=== PATIENT | female | born 1985 | race Two or more races ===

== ENCOUNTER 2017-10-31 12:10 | Observation (INO) | payer MEDICAID ==
[~2017-10-31] VITALS: Ht 160 cm; Wt 65.8 kg
[2017-10-31] MEDS ORDERED: TERBUTALINE SULFATE 1 MG/ML 1ML VIAL SC SCH (14:00)
[2017-10-31] MEDS ORDERED: TERBUTALINE SULFATE 1 MG/ML 1ML VIAL SC ONE (14:01)
[2017-10-31] MEDS ORDERED: BETAMETHASONE ACET (6MG/ML) 5ML VIAL ONE (14:22)
[2017-10-31] MEDS ORDERED: BETAMETHASONE ACET (6MG/ML) 5ML VIAL IM SCH (22:00)
[2017-11-01] MEDS ORDERED: PREN-96 PO (16:01)
== END 2017-10-31 14:55 | disposition home or self-care (01) | DRG 566 ==
LOC: LDRP 12:10
PROVIDERS: ADMIT Obstetrics & Gynecology; ATTEND Obstetrics & Gynecology
DX: O62.9 Abnormality of forces of labor, unspecified (principal); O26.893 Other specified pregnancy related conditions, third trimester; H53.8 Other visual disturbances; O46.93 Antepartum hemorrhage, unspecified, third trimester; Z3A.34 34 weeks gestation of pregnancy
CPT/HCPCS: 59025; 76818; 81002; 96372; G0378; J0702; J3105

== ENCOUNTER 2017-11-01 13:50 | Observation (INO) | payer MEDICAID ==
[2017-11-01] MEDS ORDERED: BETAMETHASONE ACET (6MG/ML) 5ML VIAL ONE (14:46)
[2017-11-01] MEDS ORDERED: PREN-96 PO (16:01)
[2017-11-01] MEDS ORDERED: BETAMETHASONE ACET (6MG/ML) 5ML VIAL IM SCH (22:00)
== END 2017-11-01 14:55 | disposition home or self-care (01) | DRG 566 ==
LOC: LDRP 13:50
PROVIDERS: ADMIT Obstetrics & Gynecology; ATTEND Obstetrics & Gynecology
DX: O62.9 Abnormality of forces of labor, unspecified (principal); O26.893 Other specified pregnancy related conditions, third trimester; Z3A.34 34 weeks gestation of pregnancy
CPT/HCPCS: 59025; 81002; G0378; J0702

== ENCOUNTER 2017-12-09 07:50 | Observation (INO) | payer MEDICAID ==
[~2017-12-09 07:50] MED LIST: PREN-96 PO
[2017-12-09] MEDS ORDERED: ASPI81TA27 PO (09:14)
== END 2017-12-09 09:05 | disposition home or self-care (01) | DRG 566 ==
LOC: LDRP 07:50
PROVIDERS: ADMIT Obstetrics & Gynecology; ATTEND Obstetrics & Gynecology
DX: O42.92 Full-term premature rupture of membranes, unspecified as to length of time between rupture and onset of labor (principal); O26.893 Other specified pregnancy related conditions, third trimester; N89.8 Other specified noninflammatory disorders of vagina; O62.9 Abnormality of forces of labor, unspecified; Z3A.39 39 weeks gestation of pregnancy
CPT/HCPCS: 76818; G0378; 59025; 81002

== ENCOUNTER 2017-12-11 04:13 | Observation (INO) | payer MEDICAID ==
[~2017-12-11] VITALS: Ht 157.5 cm; Wt 89.8 kg
[~2017-12-11 04:13] MED LIST changes: +ASPI81TA27 PO
== END 2017-12-11 05:50 | disposition home or self-care (01) | DRG 566 ==
LOC: LDRP 04:13
PROVIDERS: ADMIT Specialist; ATTEND Specialist
DX: O26.893 Other specified pregnancy related conditions, third trimester (principal); O48.0 Post-term pregnancy; O62.9 Abnormality of forces of labor, unspecified; R10.9 Unspecified abdominal pain; M54.9 Dorsalgia, unspecified; Z3A.40 40 weeks gestation of pregnancy
CPT/HCPCS: 59025; 76818; 81002; G0378

== ENCOUNTER 2018-03-11 11:52 | Inpatient (IN) | payer MEDICAID ==
[~2018-03-11] VITALS: Ht 157.5 cm; Wt 78.5 kg
[2018-03-11 13:04] LABS: Basophils # (auto) 0 uL; Eosinophils # (auto) 0.1 uL; Hemoglobin 13.1 g/dL (12.2-16.2)
[2018-03-11 13:07] LABS: Basophils % (auto) 0.3 % (0.0-2.0); Eosinophils % (auto) 1.1 % (0.0-7.0); Hematocrit 37.8 % (36.0-46.0); Lymphocytes # (auto) 1.5 uL; Mean Corpuscular Hemoglobin 29.3 pg (28.0-32.0); Mean Corpuscular Hgb Conc. 34.6 g/dL (32.0-36.0); Mean Corpuscular Volume 84.5 fL (80.0-100.0); Monocytes # (auto) 0.5 uL; Monocytes % (auto) 5.2 % (0.0-12.0); Neutrophils # (auto) 8.3 uL; Neutrophils % (auto) 79.4 % (37.0-80.0); Nucleated Red Blood Cells % 0.1 %; Platelet Count (auto) 467 10^3/uL (140-450); Red Blood Cells 4.47 10^6/uL (4.0-5.20); Red Cell Distribution Width 14.1 % (11.8-14.3); White Blood Cell 10.5 10^3/uL (4.4-10.8)
[2018-03-11] MEDS ORDERED: SODIUM CHLORIDE 0.9% 500 ML IVB ONE (13:22)
[2018-03-11] MEDS ORDERED: PANTOPRAZOLE 40 MG/10 ML VIAL IV STA (13:22)
[2018-03-11] MEDS ORDERED: MORPHINE SULF INJ 2 MG/ML SYRINGE 1ML IV ONE (13:30)
[2018-03-11] MEDS ORDERED: ONDANSETRON HCL 4 MG/2 ML VIAL IV ONE (13:30)
[2018-03-11 13:38] LABS: Alanine Aminotransferase 47 U/L (13-56); Albumin 3.9 g/dL (3.4-5.0); Alkaline Phosphatase 118 U/L (45-117); Anion Gap 11 (5-15); Aspartate Aminotransferase 17 U/L (15-37); Bilirubin, Total 0.5 mg/dL (0.2-1.0); Blood Urea Nitrogen 13 mg/dL (7-18); Calcium 9.4 mg/dL (8.5-10.1); Carbon Dioxide 21 mmol/L (21-32); Chloride 108 mmol/L (98-107); GFR African American 177 mL/min; GFR Non-African American 146 mL/min; Glucose 85 mg/dL (74-106); Magnesium 2.2 mg/dL (1.6-2.6); Potassium 4.2 mmol/L (3.5-5.1); Sodium 140 mmol/L (136-145); Total Protein 8.5 g/dL (6.4-8.2)
[2018-03-11 13:54] LABS: Amylase 52 U/L (25-115); Lipase 159 U/L (73-393)
[2018-03-11] MEDS ORDERED: NITROGLYCERIN 0.4 MG SL TAB SL PRN (16:15)
[2018-03-11] MEDS ORDERED: ACETAMINOPHEN 500 MG TAB PO PRN (16:15)
[2018-03-11] MEDS ORDERED: MORPHINE SULF INJ 2 MG/ML SYRINGE 1ML IV PRN (16:15)
[2018-03-11] MEDS: SODIUM CHLORIDE 0.9% 1,000 ML IV SCH (16:29)
[2018-03-11 18:24] VITALS: BP 108/62
[2018-03-11] MEDS ORDERED: MORPHINE SULFATE 4 MG/ML SYR/VIAL IV PRN (19:15)
[2018-03-11 19:46] LABS: Urine Bacteria FEW /hpf (None Seen); Urine Blood Negative /uL (Negative); Urine Specific Gravity 1.018 (1.001-1.035); Urine WBC 15 /hpf (0 - 5)
[2018-03-11 19:54] LABS: Alcohol, Urine < 3.0 mg/dL (0-5); Amphetamine Screen, Urine NEGATIVE (NEGATIVE); Barbiturate Scree,Urine NEGATIVE (NEGATIVE); Benzodiazephine Screen, Urine NEGATIVE (NEGATIVE); Cannabinoid Screen, Urine NEGATIVE (NEGATIVE); Cocaine Screen, Urine NEGATIVE (NEGATIVE); Opiate Scree,Urine POSITIVE (NEGATIVE); Phencyclidine Screen, Urine NEGATIVE (NEGATIVE)
[2018-03-11 20:00] VITALS: BP 114/69
[2018-03-11 21:34] VITALS: BP 114/69
[2018-03-11] MEDS: MORPHINE SULF INJ 2 MG/ML SYRINGE 1ML IV PRN (22:04)
[2018-03-12] MEDS: SODIUM CHLORIDE 0.9% 1,000 ML IV SCH ×3 (02:26→22:12)
[2018-03-12] MEDS: MORPHINE SULF INJ 2 MG/ML SYRINGE 1ML IV PRN ×3 (02:47→20:31)
[2018-03-12 04:45] VITALS: BP 99/60
[2018-03-12] MEDS: HYDROcodone-ACET 10/325MG TAB PO PRN ×3 (08:18→16:00)
[2018-03-12 09:00] VITALS: BP 97/67
[2018-03-12] MEDS ORDERED: MORPHINE SULF INJ 2 MG/ML SYRINGE 1ML IV PRN (10:00)
[2018-03-12] MEDS ORDERED: PANTOPRAZOLE 40 MG TAB PO SCH (10:00)
[2018-03-12 10:45] LABS: INR 0.98 (0.9-1.15); Partial Thromboplastin Time 31.7 sec (23.78-33.04); Prothrombin Time 10.5 sec (9.27-12.13)
[2018-03-12] MEDS: CARISOPRODOL 350 MG TAB PO PRN ×2 (11:17→18:32)
[2018-03-12 13:00] VITALS: BP 110/53
[2018-03-12] MEDS: MORPHINE SULFATE 4 MG/ML SYR/VIAL IV PRN ×2 (13:46→16:34)
[2018-03-12 17:00] VITALS: BP 99/47
[2018-03-12 20:00] VITALS: BP 138/74
[2018-03-12 21:44] VITALS: BP 116/70
[2018-03-12] MEDS: PANTOPRAZOLE 40 MG TAB PO SCH (21:51)
[2018-03-13] MEDS: SODIUM CHLORIDE 0.9% 1,000 ML IV SCH ×2 (01:42→17:49)
[2018-03-13] MEDS: MORPHINE SULF INJ 2 MG/ML SYRINGE 1ML IV PRN ×2 (01:55→20:23)
[2018-03-13 05:11] VITALS: BP 104/50
[2018-03-13] MEDS: MORPHINE SULFATE 4 MG/ML SYR/VIAL IV PRN ×4 (05:54→23:08)
[2018-03-13 08:00] VITALS: BP 108/67
[2018-03-13 08:56] VITALS: BP 108/67
[2018-03-13] MEDS: PANTOPRAZOLE 40 MG TAB PO SCH ×2 (09:07→21:41)
[2018-03-13 13:13] VITALS: BP 98/59
[2018-03-13 17:19] VITALS: BP 112/67
[2018-03-13 21:59] VITALS: BP 106/60
[2018-03-14] MEDS: MORPHINE SULF INJ 2 MG/ML SYRINGE 1ML IV PRN ×6 (02:22→18:41)
[2018-03-14] MEDS: MORPHINE SULFATE 4 MG/ML SYR/VIAL IV PRN ×3 (02:22→16:00)
[2018-03-14] MEDS: SODIUM CHLORIDE 0.9% 1,000 ML IV SCH ×2 (03:04→16:16)
[2018-03-14 05:39] VITALS: BP 112/69
[2018-03-14] MEDS ORDERED: ceFAZolin 1GM/50ML 50 ML IV ONE (08:48)
[2018-03-14 08:55] VITALS: BP 98/50
[2018-03-14] MEDS ORDERED: NEOSTIGMINE 1 MG/ML INJ (10mg/10ML VIAL) IV ONE (09:15)
[2018-03-14] MEDS ORDERED: GLYCOPYRROLATE 0.2 MG/ML 1ML VIAL IV ONE (09:15)
[2018-03-14] MEDS ORDERED: SUCCINYLCHOLINE CHLORIDE 20 MG/ML 10ML VIAL IV ONE (09:16)
[2018-03-14] MEDS ORDERED: MIDAZOLAM HCL 1MG/1ML-2 ML VIAL ONE (09:20)
[2018-03-14] MEDS ORDERED: fentaNYL CITRATE 100 MCG/2 ML VL ONE (09:20)
[2018-03-14] MEDS ORDERED: PROPOFOL 10 MG/ML 20 ML IV ONE (09:21)
[2018-03-14] MEDS ORDERED: ROCURONIUM 10MG/ML 10ML VIAL IV ONE (09:22)
[2018-03-14] MEDS: PANTOPRAZOLE 40 MG TAB PO SCH ×2 (10:00→22:07)
[2018-03-14] MEDS ORDERED: ONDANSETRON HCL 4 MG/2 ML VIAL IV ONE (10:15)
[2018-03-14] MEDS ORDERED: ePHEDrine SULFATE 50 MG/ML AMP IV PRN (10:15)
[2018-03-14] MEDS ORDERED: hydrALAZINE HCL 20 MG/ML VL IV PRN (10:15)
[2018-03-14] MEDS: fentaNYL CITRATE 100 MCG/2 ML VL IV PRN ×4 (10:25→10:55)
[2018-03-14 14:20] VITALS: BP 104/79
[2018-03-14 17:34] VITALS: BP 113/69
[2018-03-14 20:51] VITALS: BP 140/80
[2018-03-15] MEDS: MORPHINE SULF INJ 2 MG/ML SYRINGE 1ML IV PRN (00:08)
[2018-03-15] MEDS: SODIUM CHLORIDE 0.9% 1,000 ML IV SCH (00:24)
[2018-03-15] MEDS: HYDROcodone-ACET 10/325MG TAB PO PRN ×5 (03:09→19:07)
[2018-03-15 03:51] VITALS: BP 97/65
[2018-03-15 08:41] VITALS: BP 97/50
[2018-03-15] MEDS: PANTOPRAZOLE 40 MG TAB PO SCH (08:44)
[2018-03-15 13:04] VITALS: BP 106/48
[2018-03-15 17:09] VITALS: BP 106/53
== END 2018-03-15 19:00 | disposition home or self-care (01) | DRG 263 ==
LOC: ER 11:52 → TELE 11:53 → TELE-WESTW 18:26
PROVIDERS: ADMIT Internal Medicine; ATTEND Internal Medicine
PROC: 0FT44ZZ Resection of Gallbladder, Percutaneous Endoscopic Approach (ICD-10-PCS; principal; 2018-03-14 09:15)
DX: K80.12 Calculus of gallbladder with acute and chronic cholecystitis without obstruction (principal); K52.1 Toxic gastroenteritis and colitis; E66.9 Obesity, unspecified; Z82.49 Family history of ischemic heart disease and other diseases of the circulatory system; Z83.3 Family history of diabetes mellitus; K08.409 Partial loss of teeth, unspecified cause, unspecified class; T36.95XA Adverse effect of unspecified systemic antibiotic, initial encounter; Y92.89 Other specified places as the place of occurrence of the external cause; Z68.31 Body mass index [BMI] 31.0-31.9, adult
CPT/HCPCS: 36415; 71045; 76705; 80053; 80307; 81001; 81025; 82150; 82247; 82550; 83690; 83735; 84484; 85025; 85379; 85610; 85730; 86850; 86900; 86901; 93005; 94761; 96361; 96374; 96375; C9113; J0330; J0690; J2250; J2405; J2704

== ENCOUNTER 2018-10-26 22:38 | Emergency (ER) | payer MEDICAID ==
[~2018-10-26] VITALS: Ht 160 cm; Wt 68.0 kg
[2018-10-26 22:46] VITALS: BP 140/79
[2018-10-26 23:31] LABS: Basophils # (auto) 0 uL; Basophils % (auto) 0.4 % (0.0-2.0); Eosinophils # (auto) 0.1 uL; Eosinophils % (auto) 1.1 % (0.0-7.0); Hemoglobin 12.9 g/dL (12.2-16.2); Lymphocytes # (auto) 2.1 uL; Lymphocytes % (auto) 23.5 % (10.0-50.0); Mean Corpuscular Hemoglobin 29.4 pg (28.0-32.0); Mean Corpuscular Hgb Conc. 33.1 g/dL (32.0-36.0); Mean Corpuscular Volume 88.8 fL (80.0-100.0); Monocytes # (auto) 0.5 uL; Monocytes % (auto) 5.5 % (0.0-12.0); Neutrophils # (auto) 6.3 uL; Neutrophils % (auto) 69.5 % (37.0-80.0); Platelet Count (auto) 418 10^3/uL (140-450); Red Cell Distribution Width 13.9 % (11.8-14.3); White Blood Cell 9.1 10^3/uL (4.4-10.8)
[2018-10-26 23:47] LABS: Urine Bacteria FEW /hpf (None Seen); Urine Blood Negative /uL (Negative); Urine Mucus FEW (None Seen); Urine Specific Gravity 1.037 (1.001-1.035); Urine WBC 5 /hpf (0 - 5)
[2018-10-26 23:49] LABS: Alcohol, Urine < 3.0 mg/dL (0-5); Amphetamine Screen, Urine NEGATIVE (NEGATIVE); Barbiturate Scree,Urine NEGATIVE (NEGATIVE); Benzodiazephine Screen, Urine NEGATIVE (NEGATIVE); Cannabinoid Screen, Urine POSITIVE (NEGATIVE); Cocaine Screen, Urine NEGATIVE (NEGATIVE); Phencyclidine Screen, Urine NEGATIVE (NEGATIVE)
[2018-10-26 23:49] LABS: Albumin 3.6 g/dL (3.4-5.0); Anion Gap 8 (5-15); BUN/Creatinine Ratio 20.9; Blood Urea Nitrogen 14 mg/dL (7-18); Calcium 8.4 mg/dL (8.5-10.1); Carbon Dioxide 24 mmol/L (21-32); Chloride 107 mmol/L (98-107); GFR African American 131 mL/min; GFR Non-African American 108 mL/min; Glucose 88 mg/dL (74-106); Magnesium 2.1 mg/dL (1.6-2.6); Potassium 3.5 mmol/L (3.5-5.1); Sodium 139 mmol/L (136-145)
[2018-10-27 00:01] LABS: Opiate Scree,Urine POSITIVE (NEGATIVE)
[2018-10-27 00:01] LABS: Beta HCG, Quantitative < 1 mlU/mL (1-3)
[2018-10-27 00:03] LABS: Alanine Aminotransferase 21 U/L (13-56); Alkaline Phosphatase 87 U/L (45-117); Aspartate Aminotransferase 17 U/L (15-37); Bilirubin, Total 0.2 mg/dL (0.2-1.0)
== END 2018-10-27 01:18 | disposition left against medical advice (07) ==
LOC: ER 22:39
DX: R07.89 Other chest pain (principal); Z53.21 Procedure and treatment not carried out due to patient leaving prior to being seen by health care provider
CPT/HCPCS: 36415; 71045; 80053; 80307; 81001; 83735; 84443; 84484; 84702; 85025

== ENCOUNTER 2021-08-07 22:09 | Day surgery (SDC) | payer MEDICAID ==
[~2021-08-07] VITALS: Ht 157.5 cm; Wt 77.6 kg
[~2021-08-07 22:09] MED LIST changes: +ASPI-543 PO; -ASPI81TA27 PO
[2021-08-07 23:01] LABS: Eosinophils # (auto) 0.1 10 ^3/uL (0-0.8); Lymphocytes # (auto) 1.5 10 ^3/uL (0.4-5.4); Monocytes # (auto) 0.7 10 ^3/uL (0-1.3); Red Blood Cells 4.64 10^6/uL (4.0-5.20)
[2021-08-07 23:02] LABS: Basophils # (auto) 0.1 10 ^3/uL (0-0.2); Basophils % (auto) 0.4 % (0.0-2.0); Eosinophils % (auto) 0.7 % (0.0-7.0); Hematocrit 37.7 % (36.0-46.0); Hemoglobin 12.1 g/dL (12.2-16.2); Lymphocytes % (auto) 10.7 % (10.0-50.0); Mean Corpuscular Hemoglobin 26.1 pg (28.0-32.0); Mean Corpuscular Hgb Conc. 32.1 g/dL (32.0-36.0); Mean Corpuscular Volume 81.3 fL (80.0-100.0); Neutrophils # (auto) 11.6 10 ^3/uL (1.6-8.6); Neutrophils % (auto) 83.2 % (37.0-80.0); White Blood Cell 13.9 10^3/uL (4.4-10.8)
[2021-08-07 23:26] LABS: Albumin 3.8 g/dL (3.4-5.0); BUN/Creatinine Ratio 23.2; Calcium 8.9 mg/dL (8.5-10.1); Potassium 3.9 mmol/L (3.5-5.1)
[2021-08-07 23:28] LABS: Bilirubin, Total 0.2 mg/dL (0.2-1.0); Total Protein 8.4 g/dL (6.4-8.2)
[2021-08-08 03:37] LABS: Urine Bacteria NONE SEEN /hpf (None Seen); Urine Blood Negative /uL (Negative); Urine Mucus FEW (None Seen); Urine Specific Gravity 1.039 (1.001-1.035); Urine WBC 1 /hpf (0 - 5)
[2021-08-08] MEDS ORDERED: SODIUM CHLORIDE 0.9% 1,000 ML IV ONE (04:00)
[2021-08-08 04:41] LABS: Partial Thromboplastin Time 28.2 sec (23.6-33.0)
[2021-08-08] MEDS ORDERED: ceFAZolin 1GM/50ML 50 ML IV ONE (07:35)
[2021-08-08] MEDS ORDERED: OXYTOCIN 10UNIT/ML 1ML VIAL ONE (07:37)
[2021-08-08] MEDS ORDERED: fentaNYL CITRATE 100 MCG/2 ML VL ONE (09:03)
[2021-08-08] MEDS ORDERED: MIDAZOLAM HCL 2MG/2ML 2ml VIAL (1mg/ml) ONE (09:04)
[2021-08-08] MEDS ORDERED: ONDANSETRON HCL 4 MG/2 ML VIAL ONE (09:06)
[2021-08-08] MEDS ORDERED: LIDOCAINE 2% (LOCAL ANESTH.) PF 5ml SDV ONE (09:06)
[2021-08-08] MEDS ORDERED: PROPOFOL 10 MG/ML 20 ML IV ONE (09:06)
[2021-08-08] MEDS ORDERED: OXYTOCIN 10UNIT/ML 1ML VIAL IV ONE (09:30)
[2021-08-08] MEDS ORDERED: ONDANSETRON HCL 4 MG/2 ML VIAL IV PRN ×2 (09:45→10:00)
[2021-08-08] MEDS ORDERED: RHO (D) IMMUNE GLOBULIN 300 MCG INJ IM PRN (09:45)
[2021-08-08] MEDS: HYDROmorphone HCL 2 MG/ML VL IV PRN ×2 (10:20→10:50)
[2021-08-08 10:55] VITALS: BP 103/56
== END 2021-08-08 11:00 | disposition home or self-care (01) ==
LOC: ER 22:09 → SUR 22:10 → ER 08-08 07:05 → SUR 08-08 11:00
PROVIDERS: ATTEND Obstetrics & Gynecology
DX: O02.1 Missed abortion (principal); N93.9 Abnormal uterine and vaginal bleeding, unspecified; Z90.49 Acquired absence of other specified parts of digestive tract; Z20.822 Contact with and (suspected) exposure to COVID-19; Z98.891 History of uterine scar from previous surgery
CPT/HCPCS: 36415; 59812; 76801; 76817; 80053; 81001; 84702; 85025; 85610; 85730; 86850; 86900; 86901; 87426; 96361; 96374; 99285; C9803; J0690; J1170; J2001; J2250; J2405; J2590; J2704; J3010; U0003; 96360

== ENCOUNTER → 2022-07-24 | Day surgery (SDC) | payer MEDICAID ==
[2022-07-22 13:56] LABS: Basophils # (auto) 0 10 ^3/uL (0-0.2); Basophils % (auto) 0.4 % (0.0-2.0); Eosinophils # (auto) 0.1 10 ^3/uL (0-0.8); Eosinophils % (auto) 0.8 % (0.0-7.0); Hematocrit 31.8 % (36.0-46.0); Hemoglobin 10.6 g/dL (12.2-16.2); Lymphocytes # (auto) 1.4 10 ^3/uL (0.4-5.4); Lymphocytes % (auto) 14.9 % (10.0-50.0); Mean Corpuscular Hemoglobin 27.4 pg (28.0-32.0); Mean Corpuscular Hgb Conc. 33.4 g/dL (32.0-36.0); Mean Corpuscular Volume 81.9 fL (80.0-100.0); Monocytes # (auto) 0.5 10 ^3/uL (0-1.3); Neutrophils # (auto) 7.1 10 ^3/uL (1.6-8.6); Neutrophils % (auto) 77.9 % (37.0-80.0); Red Blood Cells 3.88 10^6/uL (4.0-5.20); Red Cell Distribution Width 19.3 % (11.8-14.3); White Blood Cell 9.1 10^3/uL (4.4-10.8)
[2022-07-22 14:36] LABS: Albumin 3.5 g/dL (3.4-5.0); Calcium 8.9 mg/dL (8.5-10.1); Potassium 4.1 mmol/L (3.5-5.1)
[2022-07-22 14:39] LABS: INR 0.93 (0.9-1.15); Partial Thromboplastin Time 27.6 sec (24.6-33.4)
[2022-07-22 14:40] LABS: BUN/Creatinine Ratio 15.4; Bilirubin, Total 0.7 mg/dL (0.2-1.0); Total Protein 7.7 g/dL (6.4-8.2)
[2022-07-22 14:46] LABS: Urine Bacteria NONE SEEN /hpf (None Seen); Urine Hyaline Cast FEW /lpf (0 - 2); Urine Mucus FEW (None Seen); Urine WBC 1 /hpf (0 - 5)
[2022-07-22 14:59] LABS: Urine Blood Normal /uL (Negative)
[2022-07-23 06:06] LABS: RPR Non Reactive (Non Reactive)
[~2022-07-24] VITALS: Ht 157.5 cm; Wt 80.3 kg
[~2022-07-24] MED LIST changes: -ASPI-543 PO; +DexAMETHasone SOD PHOS 10MG/1ML VIAL INJ ONE; +HYDR-4902 PO; +HYDROmorphone HCL 2 MG/ML VL/or syr IV PRN; +IBUP800T27 PO; +KETOROLAC TROMETH 30 MG/ML 1ML VIAL IV ONE; +MEPERIDINE HCL (50 MG/ML) 1 ML VIAL ONE; +METOCLOPRAMIDE HCL 5MG/ml INJ 2ml VIAL IV PRN; +MIDAZOLAM HCL 2MG/2ML 2ml VIAL (1mg/ml) ONE; +MORPHINE SULFATE 4 MG/ML SYR/VIAL IV PRN; +ONDA-144 PO; +ONDANSETRON HCL 4 MG/2 ML VIAL IV PRN; +ONDANSETRON HCL 4 MG/2 ML VIAL ONE; +OXYTOCIN 10UNIT/ML 1ML VIAL ONE; -PREN-96 PO; +PROPOFOL 10 MG/ML 20 ML IV ONE; +RHO (D) IMMUNE GLOBULIN 300 MCG INJ IM PRN; +SODIUM CHLORIDE LOCK 10 ML ONE; +ceFAZolin 1GM/50ML 100 ML IV ONE; +fentaNYL CITRATE 100 MCG/2 ML VL ONE
[2022-07-24] MEDS: HYDROmorphone HCL 2 MG/ML VL/or syr IV PRN ×3 (09:35→10:06)
[2022-07-24 10:20] VITALS: BP 107/63
== END | disposition home or self-care (01) ==
LOC: SUR 07:16
PROVIDERS: ATTEND Obstetrics & Gynecology
DX: O02.0 Blighted ovum and nonhydatidiform mole (principal); Z98.891 History of uterine scar from previous surgery; Z90.49 Acquired absence of other specified parts of digestive tract; Z20.822 Contact with and (suspected) exposure to COVID-19
CPT/HCPCS: 36415; 59820; 80053; 81001; 81025; 84702; 85025; 85610; 85730; 86592; 86850; 86900; 86901; 88305; 88342; J0690; J1100; J1170; J2175; J2250; J2405; J2590; J2704; J3010; U0003

== ENCOUNTER 2022-11-26 13:43 | Inpatient (IN) | payer MEDICAID ==
[~2022-11-26] VITALS: Ht 157.5 cm; Wt 79.9 kg
[~2022-11-26 13:43] MED LIST changes: -DexAMETHasone SOD PHOS 10MG/1ML VIAL INJ ONE; -HYDROmorphone HCL 2 MG/ML VL/or syr IV PRN; -KETOROLAC TROMETH 30 MG/ML 1ML VIAL IV ONE; -MEPERIDINE HCL (50 MG/ML) 1 ML VIAL ONE; -METOCLOPRAMIDE HCL 5MG/ml INJ 2ml VIAL IV PRN; -MIDAZOLAM HCL 2MG/2ML 2ml VIAL (1mg/ml) ONE; -MORPHINE SULFATE 4 MG/ML SYR/VIAL IV PRN; -ONDANSETRON HCL 4 MG/2 ML VIAL IV PRN; -ONDANSETRON HCL 4 MG/2 ML VIAL ONE; -OXYTOCIN 10UNIT/ML 1ML VIAL ONE; -PROPOFOL 10 MG/ML 20 ML IV ONE; -RHO (D) IMMUNE GLOBULIN 300 MCG INJ IM PRN; -SODIUM CHLORIDE LOCK 10 ML ONE; -ceFAZolin 1GM/50ML 100 ML IV ONE; -fentaNYL CITRATE 100 MCG/2 ML VL ONE
[2022-11-26] MEDS ORDERED: PANTOPRAZOLE 40 MG/10 ML VIAL INJ IV ONE ×2 (14:30→17:00)
[2022-11-26] MEDS ORDERED: SODIUM CHLORIDE 0.9% 1,000 ML IV ONE (14:30)
[2022-11-26 14:55] LABS: Urine Bacteria NONE SEEN /hpf (None Seen); Urine Blood Negative /uL (Negative); Urine Mucus FEW (None Seen); Urine Specific Gravity 1.023 (1.001-1.035); Urine WBC <1 /hpf (0 - 5)
[2022-11-26 14:57] LABS: Basophils # (auto) 0.1 10 ^3/uL (0-0.2); Eosinophils # (auto) 0.1 10 ^3/uL (0-0.8); Hematocrit 17.3 % (36.0-46.0); Lymphocytes # (auto) 1.6 10 ^3/uL (0.4-5.4); Mean Corpuscular Hemoglobin 23.8 pg (28.0-32.0); Mean Corpuscular Volume 75.1 fL (80.0-100.0); Neutrophils # (auto) 6.8 10 ^3/uL (1.6-8.6); Nucleated Red Blood Cells % 0.1 %
[2022-11-26 14:59] LABS: Basophils % (auto) 0.6 % (0.0-2.0); Eosinophils % (auto) 0.8 % (0.0-7.0); Lymphocytes % (auto) 17.9 % (10.0-50.0); Mean Corpuscular Hgb Conc. 31.6 g/dL (32.0-36.0); Monocytes # (auto) 0.5 10 ^3/uL (0-1.3); Monocytes % (auto) 5.9 % (0.0-12.0); Neutrophils % (auto) 74.8 % (37.0-80.0); White Blood Cell 9.1 10^3/uL (4.4-10.8)
[2022-11-26 15:04] LABS: Hemoglobin 5.5 g/dL (12.2-16.2); Red Cell Distribution Width 20.5 % (11.8-14.3)
[2022-11-26 15:12] LABS: INR 0.96 (0.9-1.15); Partial Thromboplastin Time 22.2 sec (24.6-33.4)
[2022-11-26 15:14] LABS: Albumin 3.6 g/dL (3.4-5.0); Calcium 8.6 mg/dL (8.5-10.1); Potassium 3.4 mmol/L (3.5-5.1)
[2022-11-26 15:20] LABS: BUN/Creatinine Ratio 20.6; Bilirubin, Total 0.1 mg/dL (0.2-1.0); Total Protein 7.2 g/dL (6.4-8.2)
[2022-11-26] MEDS ORDERED: IOHEXOL 300 MG/ML 100ML BOTTLE IJ ONE (15:41)
[2022-11-26] MEDS ORDERED: POTASSIUM EFFERVESENT TAB 25 MEQ PO ONE (17:00)
[2022-11-26 17:30] LABS: Cholesterol 189 mg/dL (< 200); HDL Cholesterol 69 mg/dL (40-59); LDL Cholesterol 107 mg/dL (< 100); Triglycerides 158 mg/dL (< 150)
[2022-11-26 20:00] VITALS: BP 106/69
[2022-11-26 20:25] VITALS: BP 130/76
[2022-11-26] MEDS: LORazepam 2MG/ML-1ML VIAL IV PRN (21:48)
[2022-11-26 23:25] VITALS: BP 113/63
[2022-11-27 00:09] VITALS: BP 106/55
[2022-11-27 00:35] VITALS: BP 109/62
[2022-11-27 03:10] VITALS: BP 117/64
[2022-11-27 03:12] VITALS: BP 117/64
[2022-11-27 07:20] LABS: Basophils # (auto) 0.1 10 ^3/uL (0-0.2); Basophils % (auto) 0.8 % (0.0-2.0); Eosinophils # (auto) 0.2 10 ^3/uL (0-0.8); Eosinophils % (auto) 2.6 % (0.0-7.0); Hematocrit 24.8 % (36.0-46.0); Lymphocytes # (auto) 1.5 10 ^3/uL (0.4-5.4); Lymphocytes % (auto) 17.3 % (10.0-50.0); Mean Corpuscular Hemoglobin 25.5 pg (28.0-32.0); Mean Corpuscular Hgb Conc. 32.2 g/dL (32.0-36.0); Mean Corpuscular Volume 79.2 fL (80.0-100.0); Monocytes # (auto) 0.6 10 ^3/uL (0-1.3); Monocytes % (auto) 6.7 % (0.0-12.0); Neutrophils # (auto) 6.2 10 ^3/uL (1.6-8.6); Neutrophils % (auto) 72.6 % (37.0-80.0); Nucleated Red Blood Cells % 0.1 %; Red Blood Cells 3.13 10^6/uL (4.0-5.20); White Blood Cell 8.5 10^3/uL (4.4-10.8)
[2022-11-27 07:22] LABS: Red Cell Distribution Width 20.3 % (11.8-14.3)
[2022-11-27] MEDS ORDERED: HYDROcodone-ACET 5/325MG TAB PO PRN (08:00)
[2022-11-27] MEDS ORDERED: NITROGLYCERIN 0.4 MG SL TAB SL PRN (08:00)
[2022-11-27] MEDS ORDERED: DOCUSATE SOD 100 MG CAP PO PRN (08:00)
[2022-11-27] MEDS ORDERED: SODIUM CHLORIDE 0.9% 1,000 ML IV SCH ×2 (08:00→08:15)
[2022-11-27] MEDS ORDERED: ONDANSETRON HCL 4 MG/2 ML VIAL IV PRN (08:00)
[2022-11-27] MEDS ORDERED: ACETAMINOPHEN 325 MG TAB PO PRN ×2 (08:00)
[2022-11-27] MEDS ORDERED: MORPHINE SULFATE INJ 2 MG/ml SYRG IV PRN (08:00)
[2022-11-27] MEDS: PANTOPRAZOLE 40 MG/10 ML VIAL INJ IV SCH (10:19)
[2022-11-27] MEDS: LORazepam 2MG/ML-1ML VIAL IV PRN (12:51)
[2022-11-27] MEDS ORDERED: LORA0.5T20 PO (17:16)
[2022-11-27] MEDS ORDERED: ACET1CAP14 PO (17:16)
[2022-11-27] MEDS: POTASSIUM CHL 20MEQ/100ML 100 ML IV SCH ×2 (18:17→22:43)
[2022-11-27] MEDS: SODIUM CHLORIDE 0.9% 1,000 ML IV SCH (18:17)
[2022-11-27 20:00] VITALS: BP 117/69
[2022-11-27] MEDS ORDERED: SODIUM FERR GLUC 62.5MG/5ML 125 MG in SODIUM CHL 0.9% 100 ML IV ONE (20:00)
[2022-11-27 22:00] VITALS: BP 117/69
[2022-11-28] MEDS: POTASSIUM CHL 20MEQ/100ML 100 ML IV SCH (01:04)
[2022-11-28] MEDS: SODIUM CHLORIDE 0.9% 1,000 ML IV SCH ×2 (02:31→09:29)
[2022-11-28 05:00] VITALS: BP 107/51
[2022-11-28 06:09] LABS: Basophils # (auto) 0 10 ^3/uL (0-0.2); Basophils % (auto) 0.5 % (0.0-2.0); Eosinophils # (auto) 0.2 10 ^3/uL (0-0.8); Eosinophils % (auto) 2.2 % (0.0-7.0); Hematocrit 23.2 % (36.0-46.0); Hemoglobin 7.6 g/dL (12.2-16.2); Mean Corpuscular Volume 79.1 fL (80.0-100.0); Monocytes # (auto) 0.6 10 ^3/uL (0-1.3); Red Blood Cells 2.94 10^6/uL (4.0-5.20); White Blood Cell 8.6 10^3/uL (4.4-10.8)
[2022-11-28 06:11] LABS: Lymphocytes # (auto) 1.1 10 ^3/uL (0.4-5.4); Lymphocytes % (auto) 12.9 % (10.0-50.0); Mean Corpuscular Hgb Conc. 32.8 g/dL (32.0-36.0); Monocytes % (auto) 6.7 % (0.0-12.0); Neutrophils # (auto) 6.7 10 ^3/uL (1.6-8.6); Neutrophils % (auto) 77.7 % (37.0-80.0); Red Cell Distribution Width 20.4 % (11.8-14.3)
[2022-11-28 06:26] LABS: Potassium 4.4 mmol/L (3.5-5.1)
[2022-11-28 06:57] LABS: Albumin 2.9 g/dL (3.4-5.0); BUN/Creatinine Ratio 13.2; Calcium 8.2 mg/dL (8.5-10.1)
[2022-11-28 07:00] LABS: Bilirubin, Total 0.3 mg/dL (0.2-1.0); Total Protein 6.2 g/dL (6.4-8.2)
[2022-11-28 09:05] VITALS: BP 91/48
[2022-11-28] MEDS: PANTOPRAZOLE 40 MG/10 ML VIAL INJ IV SCH (09:28)
[2022-11-28] MEDS ORDERED: SODIUM FERR GLUC 62.5MG/5ML 125 MG in SODIUM CHL 0.9% 100 ML IV SCH (12:00)
[2022-11-28 12:37] VITALS: BP 135/75
[2022-11-28 13:37] LABS: Hematocrit 26.6 % (36.0-46.0); Hemoglobin 8.6 g/dL (12.2-16.2)
== END 2022-11-28 15:11 | disposition home or self-care (01) | DRG 254 ==
LOC: ER 13:43 → OVERFLOW 11-27 07:57 → CENTRAL 11-27 16:32
PROVIDERS: ADMIT Nurse Practitioner Family; ATTEND Internal Medicine
DX: K64.9 Unspecified hemorrhoids (principal); D64.9 Anemia, unspecified; E66.9 Obesity, unspecified; E78.5 Hyperlipidemia, unspecified; Z20.822 Contact with and (suspected) exposure to COVID-19; Z82.49 Family history of ischemic heart disease and other diseases of the circulatory system; Z83.3 Family history of diabetes mellitus; Z98.891 History of uterine scar from previous surgery; Z90.49 Acquired absence of other specified parts of digestive tract; Z68.32 Body mass index [BMI] 32.0-32.9, adult
CPT/HCPCS: 36415; 71045; 74177; 80053; 80061; 81001; 81025; 83036; 85014; 85018; 85025; 85610; 85730; 86850; 86900; 86901; 86920; 87426; 93005; 96361; 96374; 99291; C9113; G0378; J3480

== ENCOUNTER 2022-11-30 19:41 | Emergency (ER) | payer MEDICAID ==
[~2022-11-30] VITALS: Ht 157.5 cm; Wt 76.3 kg
[~2022-11-30 19:41] MED LIST changes: +ACET1CAP14 PO; +LORA0.5T20 PO
[2022-11-30 20:22] VITALS: BP 119/76
[2022-12-01] MEDS ORDERED: HYDROcodone-ACET 5/325MG TAB PO ONE (00:15)
[2022-12-01] MEDS ORDERED: cefTRIAXone SOD 1,000 MG VL IM ONE (00:15)
[2022-12-01] MEDS ORDERED: ONDANSETRON ODT 4 MG TAB PO ONE (00:15)
[2022-12-01] MEDS ORDERED: ACE3T PO (00:22)
[2022-12-01] MEDS ORDERED: CEPH-510 PO (00:22)
== END 2022-12-01 03:41 | disposition home or self-care (01) ==
LOC: ER 19:41
DX: I80.8 Phlebitis and thrombophlebitis of other sites (principal); E78.5 Hyperlipidemia, unspecified; Z98.890 Other specified postprocedural states; Z79.899 Other long term (current) drug therapy; Z90.49 Acquired absence of other specified parts of digestive tract
CPT/HCPCS: 93971; 96372; 99285; J0696; Q0162

== ENCOUNTER 2023-08-02 07:31 | Emergency (ER) | payer MEDICAID ==
[~2023-08-02] VITALS: Ht 157.5 cm; Wt 77.4 kg
[~2023-08-02 07:31] MED LIST changes: +ACE3T PO; +CEPH-510 PO; +IBUP-1456 PO; -IBUP800T27 PO; +LORA-1121 PO; -LORA0.5T20 PO
[2023-08-02 07:58] VITALS: BP 108/62; PULSE 71; RESP 18; TEMP 98.2; O2SAT 98
== END 2023-08-02 09:45 | disposition home or self-care (01) ==
LOC: ER 07:31
DX: S63.92XA Sprain of unspecified part of left wrist and hand, initial encounter (principal); W11.XXXA Fall on and from ladder, initial encounter; Y93.89 Activity, other specified; Y92.89 Other specified places as the place of occurrence of the external cause; Y99.8 Other external cause status
CPT/HCPCS: 73130

== ENCOUNTER 2023-09-17 07:34 | Inpatient (IN) | payer MEDICAID ==
[2023-09-17] VITALS (12 sets, daily range): BP systolic 98–115; BP diastolic 51–70; PULSE 62–87; RESP 12–18; TEMP 97.9–98.7; O2SAT 96–100
[~2023-09-17] VITALS: Ht 157.5 cm; Wt 75.6 kg
[2023-09-17 08:16] LABS: Basophils # (auto) 0.1 10 ^3/uL (0-0.2); Basophils % (auto) 1.1 % (0.0-2.0); Eosinophils # (auto) 0.1 10 ^3/uL (0-0.8); Eosinophils % (auto) 1.6 % (0.0-7.0); Hematocrit 18.4 % (36.0-46.0); Lymphocytes # (auto) 0.9 10 ^3/uL (0.4-5.4); Lymphocytes % (auto) 14.4 % (10.0-50.0); Mean Corpuscular Hemoglobin 27.1 pg (28.0-32.0); Mean Corpuscular Hgb Conc. 32.3 g/dL (32.0-36.0); Mean Corpuscular Volume 83.7 fL (80.0-100.0); Monocytes # (auto) 0.3 10 ^3/uL (0-1.3); Monocytes % (auto) 5.7 % (0.0-12.0); Neutrophils # (auto) 4.7 10 ^3/uL (1.6-8.6); Neutrophils % (auto) 77.2 % (37.0-80.0); Red Cell Distribution Width 19.9 % (11.8-14.3)
[2023-09-17 08:19] LABS: Alanine Aminotransferase 14 U/L (7-40); Albumin 4.2 g/dL (3.2-4.8); Alkaline Phosphatase 70 U/L (46-116); Anion Gap 8 (5-15); Aspartate Aminotransferase 14 U/L (13-40); BUN/Creatinine Ratio 12.1 (10.0-20.0); Blood Urea Nitrogen 7 mg/dL (9-23); Calcium 8.7 mg/dL (8.5-10.1); Carbon Dioxide 23 mmol/L (20-30); Chloride 108 mmol/L (98-107); Glucose 93 mg/dL (74-106); Sodium 139 mmol/L (136-145)
[2023-09-17 08:20] LABS: Bilirubin, Total 0.3 mg/dL (0.2-1.0); Total Protein 6.4 g/dL (5.7-8.2)
[2023-09-17 08:22] LABS: INR 1.01 (0.9-1.15); Partial Thromboplastin Time 23.7 SEC (24.5-34.5); Prothrombin Time 10.6 sec (9.3-11.8)
[2023-09-17] MEDS ORDERED: SODIUM CHLORIDE 0.9% 1,000 ML IV ONE (08:45)
[2023-09-17] MEDS ORDERED: HYDROcodone-ACET 5/325MG TAB PO ONE (09:15)
[2023-09-17 09:37] LABS: Urine WBC None Seen /hpf (0 - 5)
[2023-09-17 09:55] LABS: Urine Bacteria FEW /hpf (None Seen); Urine Blood Negative /uL (Negative); Urine Clarity Clear (Clear); Urine Color Yellow (Yellow); Urine Mucus FEW (None Seen); Urine Protein, UAD Negative (Negative); Urine Specific Gravity 1.022 (1.001-1.035); Urine Urobilinogen Normal (Negative); Urine pH 6.5 (5.0-8.0)
[2023-09-17] MEDS: ONDANSETRON HCL 4 MG/2 ML VIAL IV PRN ×2 (12:26→16:58)
[2023-09-17] MEDS ORDERED: SODIUM CHLORIDE 0.9% 1,000 ML IV SCH (14:30)
[2023-09-17] MEDS ORDERED: PANTOPRAZOLE 40 MG/10 ML VIAL INJ IV ONE (14:30)
[2023-09-17] MEDS ORDERED: MORPHINE SULFATE INJ 2 MG/ml SYRG IV PRN (17:00)
[2023-09-17] MEDS ORDERED: GOLYTELY 4L KIT PO STA (17:34)
[2023-09-17] MEDS ORDERED: BISACODYL 5 MG EC TAB PO ONE (17:45)
[2023-09-17] MEDS: MORPHINE SULFATE INJ 2 MG/ml SYRG IV PRN (18:05)
[2023-09-17] MEDS ORDERED: LORazepam 0.5 MG TAB PO PRN (20:45)
[2023-09-17 22:08] LABS: Basophils # (auto) 0 10 ^3/uL (0-0.2); Basophils % (auto) 0.7 % (0.0-2.0); Eosinophils # (auto) 0.1 10 ^3/uL (0-0.8); Eosinophils % (auto) 1.3 % (0.0-7.0); Hematocrit 27.4 % (36.0-46.0); Lymphocytes # (auto) 1.7 10 ^3/uL (0.4-5.4); Lymphocytes % (auto) 22.9 % (10.0-50.0); Mean Corpuscular Hemoglobin 28.2 pg (28.0-32.0); Mean Corpuscular Hgb Conc. 32.7 g/dL (32.0-36.0); Mean Corpuscular Volume 86.3 fL (80.0-100.0); Monocytes # (auto) 0.5 10 ^3/uL (0-1.3); Monocytes % (auto) 7.5 % (0.0-12.0); Neutrophils # (auto) 4.9 10 ^3/uL (1.6-8.6); Neutrophils % (auto) 67.6 % (37.0-80.0); Nucleated Red Blood Cells % 0.1 %; Red Blood Cells 3.17 10^6/uL (4.0-5.20); White Blood Cell 7.3 10^3/uL (4.4-10.8)
[2023-09-17 22:10] LABS: Chloride 107 mmol/L (98-107); Potassium 3.5 mmol/L (3.5-5.1); Sodium 140 mmol/L (136-145)
[2023-09-17 22:11] LABS: Anion Gap 8 (5-15); Carbon Dioxide 25 mmol/L (20-30)
[2023-09-17 22:12] LABS: Calcium 8.7 mg/dL (8.5-10.1)
[2023-09-17 22:16] LABS: Glucose 97 mg/dL (74-106)
[2023-09-17 22:21] LABS: INR 1.06 (0.9-1.15); Partial Thromboplastin Time 24.7 SEC (24.5-34.5); Prothrombin Time 11.1 sec (9.3-11.8)
[2023-09-17 22:25] LABS: BUN/Creatinine Ratio 8.2 (10.0-20.0); Blood Urea Nitrogen < 5 mg/dL (9-23)
[2023-09-18] VITALS (8 sets, daily range): BP systolic 98–127; BP diastolic 52–74; PULSE 65–88; RESP 16–18; TEMP 98.1–98.3; O2SAT 95–99
[2023-09-18 00:43] LABS: Hemoglobin 7.8 g/dL (12.2-16.2)
[2023-09-18 00:44] LABS: Hematocrit 23.6 % (36.0-46.0)
[2023-09-18 05:17] LABS: Basophils # (auto) 0 10 ^3/uL (0-0.2); Eosinophils # (auto) 0.1 10 ^3/uL (0-0.8); Eosinophils % (auto) 2.1 % (0.0-7.0); Monocytes # (auto) 0.5 10 ^3/uL (0-1.3); Nucleated Red Blood Cells % 0.1 %; White Blood Cell 6.3 10^3/uL (4.4-10.8)
[2023-09-18 05:21] LABS: Basophils % (auto) 0.7 % (0.0-2.0); Hematocrit 24.4 % (36.0-46.0); Lymphocytes # (auto) 1.5 10 ^3/uL (0.4-5.4); Mean Corpuscular Hemoglobin 28.1 pg (28.0-32.0); Mean Corpuscular Hgb Conc. 32.8 g/dL (32.0-36.0); Mean Corpuscular Volume 85.7 fL (80.0-100.0); Monocytes % (auto) 8.2 % (0.0-12.0); Neutrophils # (auto) 4.1 10 ^3/uL (1.6-8.6); Red Blood Cells 2.84 10^6/uL (4.0-5.20); Red Cell Distribution Width 19.1 % (11.8-14.3)
[2023-09-18 05:35] LABS: Calcium 8.3 mg/dL (8.7-10.4); Chloride 109 mmol/L (98-107); Potassium 3.9 mmol/L (3.5-5.1); Sodium 141 mmol/L (136-145)
[2023-09-18 05:36] LABS: Anion Gap 6 (5-15); Carbon Dioxide 26 mmol/L (20-30)
[2023-09-18 05:41] LABS: Glucose 85 mg/dL (74-106)
[2023-09-18 06:05] LABS: BUN/Creatinine Ratio 8.1 (10.0-20.0); Blood Urea Nitrogen < 5 mg/dL (9-23)
[2023-09-18] MEDS ORDERED: LIDOCAINE 2% (LOCAL ANESTH.) PF 5ml SDV ONE (09:02)
[2023-09-18] MEDS ORDERED: PROPOFOL 10 MG/ML 20 ML IV ONE ×3 (09:02→10:01)
[2023-09-18] MEDS: PANTOPRAZOLE 40 MG/10 ML VIAL INJ IV SCH (10:00)
[2023-09-18 12:19] LABS: Hematocrit 25.2 % (36.0-46.0); Hemoglobin 8.3 g/dL (12.2-16.2)
[2023-09-18 18:16] LABS: Hematocrit 24.3 % (36.0-46.0); Hemoglobin 8.1 g/dL (12.2-16.2)
[2023-09-19] VITALS (7 sets, daily range): BP systolic 100–108; BP diastolic 54–66; PULSE 65–76; RESP 17–21; TEMP 97.7–98.2; O2SAT 97–99
[2023-09-19 05:23] LABS: Basophils # (auto) 0 10 ^3/uL (0-0.2); Eosinophils # (auto) 0.1 10 ^3/uL (0-0.8); Hemoglobin 7.8 g/dL (12.2-16.2); Monocytes # (auto) 0.5 10 ^3/uL (0-1.3); White Blood Cell 5.7 10^3/uL (4.4-10.8)
[2023-09-19 05:27] LABS: Basophils % (auto) 0.8 % (0.0-2.0); Eosinophils % (auto) 2.5 % (0.0-7.0); Hematocrit 23.4 % (36.0-46.0); Lymphocytes # (auto) 1.2 10 ^3/uL (0.4-5.4); Lymphocytes % (auto) 20.9 % (10.0-50.0); Mean Corpuscular Hemoglobin 28.6 pg (28.0-32.0); Mean Corpuscular Hgb Conc. 33.4 g/dL (32.0-36.0); Mean Corpuscular Volume 85.7 fL (80.0-100.0); Monocytes % (auto) 8.5 % (0.0-12.0); Neutrophils # (auto) 3.8 10 ^3/uL (1.6-8.6); Neutrophils % (auto) 67.3 % (37.0-80.0); Red Blood Cells 2.73 10^6/uL (4.0-5.20); Red Cell Distribution Width 18.9 % (11.8-14.3)
[2023-09-19 05:36] LABS: Chloride 109 mmol/L (98-107); Sodium 141 mmol/L (136-145)
[2023-09-19 05:37] LABS: Anion Gap 7 (5-15); Carbon Dioxide 25 mmol/L (20-30)
[2023-09-19 05:38] LABS: Calcium 8.5 mg/dL (8.7-10.4)
[2023-09-19 05:42] LABS: Glucose 85 mg/dL (74-106)
[2023-09-19 05:51] LABS: BUN/Creatinine Ratio 8.6 (10.0-20.0); Blood Urea Nitrogen < 5 mg/dL (9-23)
[2023-09-19] MEDS: PANTOPRAZOLE 40 MG/10 ML VIAL INJ IV SCH (09:02)
[2023-09-19] MEDS: HYDROcodone-ACET 5/325MG TAB PO PRN ×2 (09:02→20:20)
[2023-09-20 05:00] VITALS: BP 97/58; PULSE 61; RESP 22; TEMP 97.7; O2SAT 97
[2023-09-20 06:33] LABS: Basophils # (auto) 0 10 ^3/uL (0-0.2); Basophils % (auto) 0.8 % (0.0-2.0); Eosinophils # (auto) 0.2 10 ^3/uL (0-0.8); Eosinophils % (auto) 3.3 % (0.0-7.0); Hematocrit 25.3 % (36.0-46.0); Hemoglobin 8.5 g/dL (12.2-16.2); Lymphocytes # (auto) 1.3 10 ^3/uL (0.4-5.4); Lymphocytes % (auto) 21.5 % (10.0-50.0); Mean Corpuscular Hemoglobin 28.4 pg (28.0-32.0); Mean Corpuscular Hgb Conc. 33.4 g/dL (32.0-36.0); Mean Corpuscular Volume 85.1 fL (80.0-100.0); Monocytes # (auto) 0.4 10 ^3/uL (0-1.3); Monocytes % (auto) 7.3 % (0.0-12.0); Neutrophils # (auto) 4.1 10 ^3/uL (1.6-8.6); Neutrophils % (auto) 67.1 % (37.0-80.0); Red Blood Cells 2.98 10^6/uL (4.0-5.20)
[2023-09-20 06:43] LABS: Anion Gap 6 (5-15); Carbon Dioxide 27 mmol/L (20-30); Chloride 106 mmol/L (98-107); Sodium 139 mmol/L (136-145)
[2023-09-20 06:44] LABS: Calcium 8.7 mg/dL (8.7-10.4)
[2023-09-20 06:49] LABS: Glucose 76 mg/dL (74-106)
[2023-09-20 07:09] LABS: BUN/Creatinine Ratio 7.9 (10.0-20.0); Blood Urea Nitrogen < 5 mg/dL (9-23)
[2023-09-20 09:00] VITALS: BP 115/72; PULSE 91; RESP 18; O2SAT 99
[2023-09-20 09:05] LABS: % Iron Saturation 3.8 % (15-50)
[2023-09-20] MEDS ORDERED: PANT40TA2 PO (09:32)
[2023-09-20] MEDS: PANTOPRAZOLE 40 MG/10 ML VIAL INJ IV SCH (09:46)
[2023-09-20 11:51] LABS: Folate (Folic Acid) 15.47 ng/mL (>5.38)
[2023-09-20] MEDS: ONDANSETRON HCL 4 MG/2 ML VIAL IV PRN (12:15)
[2023-09-20] MEDS: MORPHINE SULFATE INJ 2 MG/ml SYRG IV PRN (12:31)
[2023-09-20 13:00] VITALS: BP 106/70; PULSE 65; RESP 16; TEMP 98.3; O2SAT 97
[2023-09-20 17:00] VITALS: BP 98/71; PULSE 75; RESP 16; TEMP 98.3; O2SAT 98
== END 2023-09-20 20:00 | disposition home or self-care (01) | DRG 254 ==
LOC: ER 07:34 → OVERFLOW 13:23 → CENTRAL 15:31
PROVIDERS: ADMIT Internal Medicine Pulmonary Disease; ATTEND Internal Medicine Pulmonary Disease
PROC: 30233N1 Transfusion of Nonautologous Red Blood Cells into Peripheral Vein, Percutaneous Approach (ICD-10-PCS; 2023-09-17)
PROC: 0DB78ZX Excision of Stomach, Pylorus, Via Natural or Artificial Opening Endoscopic, Diagnostic (ICD-10-PCS; 2023-09-18)
PROC: 0DBP8ZX Excision of Rectum, Via Natural or Artificial Opening Endoscopic, Diagnostic (ICD-10-PCS; principal; 2023-09-18 09:47)
DX: K62.89 Other specified diseases of anus and rectum (principal); K29.71 Gastritis, unspecified, with bleeding; D50.9 Iron deficiency anemia, unspecified; K64.8 Other hemorrhoids; E78.5 Hyperlipidemia, unspecified; F41.9 Anxiety disorder, unspecified; F32.9 Major depressive disorder, single episode, unspecified; K64.4 Residual hemorrhoidal skin tags; Z83.3 Family history of diabetes mellitus; Z90.49 Acquired absence of other specified parts of digestive tract; Z87.891 Personal history of nicotine dependence
CPT/HCPCS: 36415; 71045; 80048; 80053; 81001; 81025; 82607; 82728; 82746; 82962; 83540; 83550; 84702; 85014; 85018; 85025; 85610; 85730; 86850; 86900; 86901; 86920; 87086; 93005; 99291; C9113; G0378; J2001; J2405; J2704

== ENCOUNTER 2023-09-30 10:36 | Inpatient (IN) | payer MEDICAID ==
[~2023-09-30] VITALS: Ht 157.5 cm; Wt 72.5 kg
[~2023-09-30 10:36] MED LIST changes: +PANT40TA2 PO
[2023-09-30] MEDS ORDERED: SODIUM CHLORIDE 0.9% 1,000 ML IV ONE (11:00)
[2023-09-30 11:18] LABS: Urine Epithelial Cast None Seen /hpf (<5)
[2023-09-30 11:28] LABS: Basophils # (auto) 0 10 ^3/uL (0-0.2); Basophils % (auto) 0.7 % (0.0-2.0); Eosinophils # (auto) 0.1 10 ^3/uL (0-0.8); Monocytes # (auto) 0.4 10 ^3/uL (0-1.3); Neutrophils # (auto) 2.2 10 ^3/uL (1.6-8.6); Red Cell Distribution Width 20.6 % (11.8-14.3)
[2023-09-30 11:31] LABS: Hematocrit 24.9 % (36.0-46.0); Lymphocytes # (auto) 1.2 10 ^3/uL (0.4-5.4); Lymphocytes % (auto) 31.2 % (10.0-50.0); Mean Corpuscular Hemoglobin 26.4 pg (28.0-32.0); Mean Corpuscular Volume 82.4 fL (80.0-100.0); Monocytes % (auto) 9.3 % (0.0-12.0); Neutrophils % (auto) 56.8 % (37.0-80.0); Nucleated Red Blood Cells % 0.2 %; Red Blood Cells 3.03 10^6/uL (4.0-5.20); White Blood Cell 3.9 10^3/uL (4.4-10.8)
[2023-09-30 11:37] LABS: Urine Bacteria FEW /hpf (None Seen); Urine Blood Negative /uL (Negative); Urine Clarity Clear (Clear); Urine Color Yellow (Yellow); Urine Mucus FEW (None Seen); Urine Protein, UAD TRACE (Negative); Urine Urobilinogen Normal (Negative); Urine WBC 1 /hpf (0 - 5)
[2023-09-30 11:42] VITALS: RESP 14
[2023-09-30 11:47] LABS: Alanine Aminotransferase 27 U/L (7-40); Albumin 4.7 g/dL (3.2-4.8); Alkaline Phosphatase 89 U/L (46-116); Anion Gap 6 (5-15); Aspartate Aminotransferase 23 U/L (13-40); BUN/Creatinine Ratio 14.1 (10.0-20.0); Bilirubin, Total 0.3 mg/dL (0.2-1.0); Blood Urea Nitrogen 9 mg/dL (9-23); Calcium 9.2 mg/dL (8.5-10.1); Carbon Dioxide 25 mmol/L (20-30); Chloride 106 mmol/L (98-107); Glucose 83 mg/dL (74-106); Potassium 3.8 mmol/L (3.5-5.1); Sodium 137 mmol/L (136-145); Total Protein 7.6 g/dL (5.7-8.2)
[2023-09-30] MEDS ORDERED: ACETAMINOPHEN 325 MG TAB PO ONE (12:45)
[2023-09-30 13:01] LABS: Basophils # (auto) 0 10 ^3/uL (0-0.2); Monocytes # (auto) 0.4 10 ^3/uL (0-1.3); Red Cell Distribution Width 20.5 % (11.8-14.3); White Blood Cell 5.7 10^3/uL (4.4-10.8)
[2023-09-30 13:02] LABS: Basophils % (auto) 0.8 % (0.0-2.0); Eosinophils # (auto) 0 10 ^3/uL (0-0.8); Eosinophils % (auto) 0.8 % (0.0-7.0); Hematocrit 22.6 % (36.0-46.0); Hemoglobin 7.1 g/dL (12.2-16.2); Lymphocytes # (auto) 0.9 10 ^3/uL (0.4-5.4); Lymphocytes % (auto) 15.7 % (10.0-50.0); Mean Corpuscular Hemoglobin 25.8 pg (28.0-32.0); Mean Corpuscular Hgb Conc. 31.4 g/dL (32.0-36.0); Mean Corpuscular Volume 82.4 fL (80.0-100.0); Monocytes % (auto) 7.2 % (0.0-12.0); Neutrophils # (auto) 4.3 10 ^3/uL (1.6-8.6); Neutrophils % (auto) 75.5 % (37.0-80.0); Red Blood Cells 2.74 10^6/uL (4.0-5.20)
[2023-09-30] MEDS ORDERED: ACETAMINOPHEN 325 MG TAB PO PRN (15:30)
[2023-09-30] MEDS ORDERED: LORazepam 0.5 MG TAB PO SCH (15:30)
[2023-09-30 18:03] VITALS: PULSE 76; RESP 18; O2SAT 98
[2023-09-30] MEDS ORDERED: GABA-1250 PO (18:08)
[2023-09-30] MEDS ORDERED: CLON0.5T3 PO (18:08)
[2023-09-30] MEDS ORDERED: GAB100C PO (18:08)
[2023-09-30] MEDS ORDERED: BUPR150T18 PO (18:08)
[2023-09-30] MEDS ORDERED: POLYPOW (18:08)
[2023-09-30] MEDS ORDERED: INFLUENZA QUAD 2023-2024 0.5 ML SYRG IM ONE (18:45)
[2023-09-30] MEDS: SODIUM CHLORIDE 0.9% 1,000 ML IV SCH (19:02)
[2023-09-30 20:00] VITALS: PULSE 71; RESP 18; O2SAT 98
[2023-09-30 22:00] VITALS: BP 100/59; PULSE 71; RESP 18; TEMP 98.4; O2SAT 98
[2023-09-30 22:51] VITALS: BP 108/65; PULSE 73; RESP 14; TEMP 98.5
[2023-09-30 23:12] VITALS: BP 109/66; PULSE 72; RESP 16; TEMP 98.8
[2023-10-01] VITALS (11 sets, daily range): BP systolic 95–107; BP diastolic 53–68; PULSE 58–75; RESP 16–21; TEMP 98.1–98.9; O2SAT 97–98
[2023-10-01] MEDS: SODIUM CHLORIDE 0.9% 1,000 ML IV SCH ×2 (04:54→18:25)
[2023-10-01 07:04] LABS: Basophils # (auto) 0 10 ^3/uL (0-0.2); Eosinophils # (auto) 0.1 10 ^3/uL (0-0.8); Hemoglobin 9.4 g/dL (12.2-16.2); Mean Corpuscular Hemoglobin 26.9 pg (28.0-32.0); Monocytes # (auto) 0.4 10 ^3/uL (0-1.3); Neutrophils # (auto) 2.4 10 ^3/uL (1.6-8.6); Nucleated Red Blood Cells % 0.2 %
[2023-10-01 07:06] LABS: Basophils % (auto) 0.7 % (0.0-2.0); Eosinophils % (auto) 2.6 % (0.0-7.0); Hematocrit 28.8 % (36.0-46.0); Lymphocytes # (auto) 1.1 10 ^3/uL (0.4-5.4); Lymphocytes % (auto) 27.8 % (10.0-50.0); Mean Corpuscular Hgb Conc. 32.7 g/dL (32.0-36.0); Mean Corpuscular Volume 82.3 fL (80.0-100.0); Monocytes % (auto) 10.3 % (0.0-12.0); Neutrophils % (auto) 58.6 % (37.0-80.0); Red Cell Distribution Width 18.9 % (11.8-14.3); White Blood Cell 4.1 10^3/uL (4.4-10.8)
[2023-10-01 07:29] LABS: Alanine Aminotransferase 19 U/L (7-40); Albumin 4.1 g/dL (3.2-4.8); Alkaline Phosphatase 77 U/L (46-116); Anion Gap 9 (5-15); Aspartate Aminotransferase 13 U/L (13-40); Calcium 8.7 mg/dL (8.7-10.4); Carbon Dioxide 21 mmol/L (20-30); Chloride 110 mmol/L (98-107); Glucose 86 mg/dL (74-106); Potassium 4.1 mmol/L (3.5-5.1); Sodium 140 mmol/L (136-145); Total Protein 6.5 g/dL (5.7-8.2)
[2023-10-01 07:30] LABS: BUN/Creatinine Ratio 9.3 (10.0-20.0); Blood Urea Nitrogen < 5 mg/dL (9-23)
[2023-10-01] MEDS: PANTOPRAZOLE 40 MG TAB PO SCH (10:01)
[2023-10-01 11:01] LABS: Basophils # (auto) 0 10 ^3/uL (0-0.2); Basophils % (auto) 0.5 % (0.0-2.0); Eosinophils # (auto) 0.1 10 ^3/uL (0-0.8); Eosinophils % (auto) 1.6 % (0.0-7.0); Hematocrit 29.9 % (36.0-46.0); Hemoglobin 9.8 g/dL (12.2-16.2); Lymphocytes # (auto) 1.3 10 ^3/uL (0.4-5.4); Lymphocytes % (auto) 27.5 % (10.0-50.0); Mean Corpuscular Hemoglobin 27.1 pg (28.0-32.0); Mean Corpuscular Hgb Conc. 32.8 g/dL (32.0-36.0); Mean Corpuscular Volume 82.6 fL (80.0-100.0); Monocytes # (auto) 0.5 10 ^3/uL (0-1.3); Monocytes % (auto) 10.9 % (0.0-12.0); Neutrophils # (auto) 2.8 10 ^3/uL (1.6-8.6); Neutrophils % (auto) 59.5 % (37.0-80.0); Red Blood Cells 3.62 10^6/uL (4.0-5.20); Red Cell Distribution Width 18.9 % (11.8-14.3); White Blood Cell 4.7 10^3/uL (4.4-10.8)
[2023-10-01 16:37] LABS: Basophils # (auto) 0 10 ^3/uL (0-0.2); Eosinophils # (auto) 0.1 10 ^3/uL (0-0.8); Monocytes # (auto) 0.6 10 ^3/uL (0-1.3); Neutrophils # (auto) 3.3 10 ^3/uL (1.6-8.6); Nucleated Red Blood Cells % 0.1 %; Red Blood Cells 3.71 10^6/uL (4.0-5.20)
[2023-10-01 16:39] LABS: Basophils % (auto) 0.4 % (0.0-2.0); Hematocrit 30.5 % (36.0-46.0); Lymphocytes # (auto) 1.3 10 ^3/uL (0.4-5.4); Lymphocytes % (auto) 25.1 % (10.0-50.0); Mean Corpuscular Hemoglobin 26.9 pg (28.0-32.0); Mean Corpuscular Hgb Conc. 32.7 g/dL (32.0-36.0); Mean Corpuscular Volume 82.3 fL (80.0-100.0); Monocytes % (auto) 10.7 % (0.0-12.0); Neutrophils % (auto) 61.8 % (37.0-80.0); Red Cell Distribution Width 18.7 % (11.8-14.3); White Blood Cell 5.4 10^3/uL (4.4-10.8)
[2023-10-01 22:39] LABS: Basophils # (auto) 0 10 ^3/uL (0-0.2); Eosinophils # (auto) 0.1 10 ^3/uL (0-0.8); Hemoglobin 10.1 g/dL (12.2-16.2)
[2023-10-01 22:40] LABS: Basophils % (auto) 0.7 % (0.0-2.0); Hematocrit 31.1 % (36.0-46.0); Lymphocytes # (auto) 1.7 10 ^3/uL (0.4-5.4); Lymphocytes % (auto) 26.5 % (10.0-50.0); Mean Corpuscular Hemoglobin 26.7 pg (28.0-32.0); Mean Corpuscular Hgb Conc. 32.5 g/dL (32.0-36.0); Mean Corpuscular Volume 81.9 fL (80.0-100.0); Monocytes # (auto) 0.6 10 ^3/uL (0-1.3); Monocytes % (auto) 9.3 % (0.0-12.0); Neutrophils % (auto) 61.5 % (37.0-80.0); Red Blood Cells 3.79 10^6/uL (4.0-5.20); Red Cell Distribution Width 19.1 % (11.8-14.3); White Blood Cell 6.6 10^3/uL (4.4-10.8)
[2023-10-02 05:00] VITALS: BP 92/52; PULSE 57; RESP 19; TEMP 98.2; O2SAT 97
[2023-10-02] MEDS: SODIUM CHLORIDE 0.9% 1,000 ML IV SCH (07:30)
[2023-10-02 08:00] VITALS: PULSE 66; RESP 16; O2SAT 99
[2023-10-02] MEDS: PANTOPRAZOLE 40 MG TAB PO SCH (10:00)
[2023-10-02 10:42] VITALS: BP 105/58; PULSE 63; RESP 16; TEMP 98.3; O2SAT 99
[2023-10-02 13:06] VITALS: BP 99/54; PULSE 66; RESP 16; TEMP 98.4; O2SAT 98
== END 2023-10-02 13:00 | disposition home or self-care (01) | DRG 254 ==
LOC: ER 10:36 → OVERFLOW 15:23 → EAST 17:03
PROVIDERS: ADMIT Nurse Practitioner Family; ATTEND Internal Medicine
PROC: 30233N1 Transfusion of Nonautologous Red Blood Cells into Peripheral Vein, Percutaneous Approach (ICD-10-PCS; principal; 2023-09-30)
DX: K64.9 Unspecified hemorrhoids (principal); D64.9 Anemia, unspecified; F32.A Depression, unspecified; Z83.3 Family history of diabetes mellitus
CPT/HCPCS: 36415; 80053; 81001; 85025; 86850; 86900; 86901; 86920; 87081; G0378

== ENCOUNTER 2023-11-24 09:17 | Day surgery (SDC) | payer MEDICAID ==
[2023-11-19 11:47] LABS: Eosinophils # (auto) 0.1 10 ^3/uL (0-0.8)
[2023-11-19 11:49] LABS: Basophils # (auto) 0 10 ^3/uL (0-0.2); Basophils % (auto) 0.5 % (0.0-2.0); Eosinophils % (auto) 1.4 % (0.0-7.0); Hematocrit 38.7 % (36.0-46.0); Hemoglobin 12.8 g/dL (12.2-16.2); Lymphocytes # (auto) 1.6 10 ^3/uL (0.4-5.4); Lymphocytes % (auto) 18.3 % (10.0-50.0); Mean Corpuscular Hemoglobin 27.8 pg (28.0-32.0); Mean Corpuscular Hgb Conc. 33.1 g/dL (32.0-36.0); Mean Corpuscular Volume 84.2 fL (80.0-100.0); Monocytes # (auto) 0.6 10 ^3/uL (0-1.3); Monocytes % (auto) 6.2 % (0.0-12.0); Neutrophils # (auto) 6.5 10 ^3/uL (1.6-8.6); Neutrophils % (auto) 73.6 % (37.0-80.0); Nucleated Red Blood Cells % 0.1 %; Red Cell Distribution Width 19.6 % (11.8-14.3); Urine Bacteria NONE SEEN /hpf (None Seen); Urine Blood Negative /uL (Negative); Urine Clarity Clear (Clear); Urine Color Yellow (Yellow); Urine Mucus FEW (None Seen); Urine Protein, UAD TRACE (Negative); Urine Specific Gravity 1.032 (1.001-1.035); Urine WBC 2 /hpf (0 - 5); Urine pH 6.5 (5.0-8.0); White Blood Cell 8.9 10^3/uL (4.4-10.8)
[2023-11-19 12:03] LABS: INR 1.05 (0.9-1.15); Partial Thromboplastin Time 30.5 SEC (24.5-34.5)
[2023-11-19 12:07] LABS: Platelet Estimate Increased
[2023-11-19 12:30] LABS: Alanine Aminotransferase 19 U/L (7-40); Albumin 4.9 g/dL (3.2-4.8); Alkaline Phosphatase 83 U/L (46-116); Anion Gap 7 (5-15); Aspartate Aminotransferase 20 U/L (13-40); BUN/Creatinine Ratio 13.7 (10.0-20.0); Bilirubin, Total 0.6 mg/dL (0.2-1.0); Blood Urea Nitrogen 10 mg/dL (9-23); Calcium 9.5 mg/dL (8.7-10.4); Carbon Dioxide 25 mmol/L (20-30); Chloride 106 mmol/L (98-107); Glucose 98 mg/dL (74-106); Sodium 138 mmol/L (136-145); Total Protein 8.2 g/dL (5.7-8.2)
[~2023-11-24] VITALS: Ht 160 cm; Wt 68.0 kg
[~2023-11-24 09:17] MED LIST changes: -ACE3T PO; +BUPR150T18 PO; -CEPH-510 PO; +CLON0.5T3 PO; -HYDR-4902 PO; -IBUP-1456 PO; +POLYPOW
[2023-11-24] MEDS ORDERED: ceFAZolin 2 GM/D5W50ml 50 ML IV ONE (09:30)
[2023-11-24] MEDS ORDERED: LIDOCAINE 2% JELLY 11ml (GLYDO) ONE (09:56)
[2023-11-24] MEDS ORDERED: fentaNYL CITRATE 100 MCG/2 ML VL ONE (10:07)
[2023-11-24] MEDS ORDERED: MIDAZOLAM HCL 2MG/2ML 2ml VIAL (1mg/ml) ONE (10:07)
[2023-11-24] MEDS ORDERED: MEPERIDINE HCL (25 MG/ML) 1ML VIAL ONE ×2 (10:07→10:56)
[2023-11-24] MEDS ORDERED: DexAMETHasone SOD PHOS 10MG/1ML VIAL INJ ONE (10:47)
[2023-11-24] MEDS ORDERED: PROPOFOL 10 MG/ML 20 ML IV ONE (10:47)
[2023-11-24] MEDS ORDERED: MIDAZOLAM HCL 2MG/2ML 2ml VIAL (1mg/ml) IV PRN (11:00)
[2023-11-24] MEDS ORDERED: LABETALOL HCL 5 MG/ML 4ML SYRINGE IV PRN (11:00)
[2023-11-24] MEDS ORDERED: KETOROLAC TROMETH 30 MG/ML 1ML VIAL IV ONE (11:00)
[2023-11-24] MEDS ORDERED: ONDANSETRON HCL 4 MG/2 ML VIAL IV PRN (11:00)
[2023-11-24] MEDS ORDERED: ePHEDrine SULFATE 50 MG/ML AMP IV PRN (11:00)
[2023-11-24] MEDS ORDERED: HYDROmorphone HCL 2 MG/ML VL/or syr IV PRN (11:00)
[2023-11-24] MEDS ORDERED: MORPHINE SULFATE 4 MG/ML SYR/VIAL IV PRN (11:00)
[2023-11-24] MEDS ORDERED: SUGAMMADEX 200mg/2ml Vial (100MG/ML) IV ONE (11:31)
[2023-11-24 11:40] VITALS: PULSE 73; RESP 13; TEMP 98.7; O2SAT 100
[2023-11-24 12:30] VITALS: BP 105/65; PULSE 68; RESP 13; O2SAT 99
== END 2023-11-24 12:40 | disposition home or self-care (01) ==
LOC: SUR 09:17
PROVIDERS: ATTEND Surgery
DX: K64.8 Other hemorrhoids (principal); K64.4 Residual hemorrhoidal skin tags; F32.A Depression, unspecified; F41.9 Anxiety disorder, unspecified; Z83.3 Family history of diabetes mellitus; Z83.42 Family history of familial hypercholesterolemia; Z87.891 Personal history of nicotine dependence; Z86.2 Personal history of diseases of the blood and blood-forming organs and certain disorders involving the immune mechanism; Z98.891 History of uterine scar from previous surgery; Z90.49 Acquired absence of other specified parts of digestive tract
CPT/HCPCS: 36415; 46221; 46999; 80053; 81001; 84702; 85025; 85610; 85730; 86850; 86900; 86901; 88304; J0690; J1100; J2175; J2250; J2704; J3010

== ENCOUNTER 2023-12-03 19:56 | Emergency (ER) | payer MEDICAID ==
[~2023-12-03] VITALS: Ht 157.5 cm; Wt 68.3 kg
[2023-12-03 20:59] LABS: Urine Bacteria NONE SEEN /hpf (None Seen); Urine Blood Negative /uL (Negative); Urine Clarity Clear (Clear); Urine Color Yellow (Yellow); Urine Mucus FEW (None Seen); Urine Protein, UAD Negative (Negative); Urine Specific Gravity 1.024 (1.001-1.035); Urine Urobilinogen Normal (Negative); Urine WBC <1 /hpf (0 - 5); Urine pH 6.5 (5.0-8.0)
[2023-12-03] MEDS: ONDANSETRON ODT 4 MG TAB PO ONE (22:30)
[2023-12-03 22:56] LABS: Basophils # (auto) 0.1 10 ^3/uL (0-0.2); Eosinophils # (auto) 0.4 10 ^3/uL (0-0.8); Lymphocytes # (auto) 2.4 10 ^3/uL (0.4-5.4); Red Cell Distribution Width 17.9 % (11.8-14.3); White Blood Cell 12.4 10^3/uL (4.4-10.8)
[2023-12-03 22:57] LABS: Basophils % (auto) 0.6 % (0.0-2.0); Eosinophils % (auto) 3.4 % (0.0-7.0); Hematocrit 37.5 % (36.0-46.0); Hemoglobin 12.1 g/dL (12.2-16.2); Lymphocytes % (auto) 19.5 % (10.0-50.0); Mean Corpuscular Hemoglobin 27.1 pg (28.0-32.0); Mean Corpuscular Hgb Conc. 32.4 g/dL (32.0-36.0); Mean Corpuscular Volume 83.6 fL (80.0-100.0); Monocytes # (auto) 0.9 10 ^3/uL (0-1.3); Neutrophils # (auto) 8.6 10 ^3/uL (1.6-8.6); Neutrophils % (auto) 69.5 % (37.0-80.0); Red Blood Cells 4.48 10^6/uL (4.0-5.20)
[2023-12-03 23:04] VITALS: TEMP 98.2
[2023-12-03 23:04] LABS: Chloride 106 mmol/L (98-107); Potassium 4.1 mmol/L (3.5-5.1); Sodium 139 mmol/L (136-145)
[2023-12-03] MEDS: MORPHINE SULFATE 4 MG/ML SYR/VIAL IM ONE (23:04)
[2023-12-03 23:05] LABS: Anion Gap 8 (5-15); Calcium 9.6 mg/dL (8.7-10.4); Carbon Dioxide 25 mmol/L (20-30)
[2023-12-03 23:09] LABS: INR 1.04 (0.9-1.15); Partial Thromboplastin Time 30.4 SEC (24.5-34.5); Prothrombin Time 10.9 sec (9.3-11.8)
[2023-12-03 23:10] LABS: BUN/Creatinine Ratio 18.9 (10.0-20.0); Blood Urea Nitrogen 14 mg/dL (9-23); Glucose 91 mg/dL (74-106)
[2023-12-03] MEDS: SODIUM CHLORIDE 0.9% 1,000 ML IV ONE ×2 (23:14→23:20)
[2023-12-04] MEDS: HYDROcodone-ACET 5/325MG TAB PO ONE (00:08)
[2023-12-04 00:27] VITALS: BP 105/48; PULSE 67; RESP 17; O2SAT 99
[2023-12-04] MEDS ORDERED: HYDR-4902 PO ×2 (01:37→01:39)
== END 2023-12-04 01:53 | disposition home or self-care (01) ==
LOC: ER 19:56
DX: G89.18 Other acute postprocedural pain (principal); K62.89 Other specified diseases of anus and rectum; Z79.899 Other long term (current) drug therapy; Z79.01 Long term (current) use of anticoagulants
CPT/HCPCS: 36415; 74176; 80048; 81001; 85025; 85610; 85730; 86850; 86900; 86901; 96360; 99284; J7030; Q0162

== ENCOUNTER → 2023-12-10 | Outpatient (CLI) | payer MEDICAID ==
[~2023-12-10] MED LIST changes: +HYDR-4902 PO
[2023-12-10 09:35] LABS: Eosinophils % (auto) 2.4 % (0.0-7.0); Lymphocytes # (auto) 1.3 10 ^3/uL (0.4-5.4); Mean Corpuscular Hemoglobin 27.3 pg (28.0-32.0); Mean Corpuscular Hgb Conc. 32.6 g/dL (32.0-36.0); Monocytes # (auto) 0.4 10 ^3/uL (0-1.3); Neutrophils # (auto) 4.3 10 ^3/uL (1.6-8.6)
[2023-12-10 09:38] LABS: Basophils # (auto) 0.1 10 ^3/uL (0-0.2); Basophils % (auto) 0.9 % (0.0-2.0); Eosinophils # (auto) 0.2 10 ^3/uL (0-0.8); Hemoglobin 11.4 g/dL (12.2-16.2); Lymphocytes % (auto) 20.3 % (10.0-50.0); Mean Corpuscular Volume 83.8 fL (80.0-100.0); Monocytes % (auto) 6.8 % (0.0-12.0); Neutrophils % (auto) 69.6 % (37.0-80.0); Red Blood Cells 4.17 10^6/uL (4.0-5.20); White Blood Cell 6.2 10^3/uL (4.4-10.8)
[2023-12-10 11:04] LABS: Platelet Estimate Increased
[2023-12-10 11:05] LABS: Ovalocytes FEW
== END | disposition home or self-care (01) ==
LOC: LAB 09:15
PROVIDERS: ATTEND Internal Medicine
DX: D64.9 Anemia, unspecified (principal)
CPT/HCPCS: 36415; 85025

== ENCOUNTER 2024-06-28 11:53 | Observation (INO) | payer MEDICAID | END 2024-06-28 13:33 | disposition home or self-care (01) | LOC: UNDOADMOB 11:53 → LDRP 11:53 | PROVIDERS: ADMIT Obstetrics & Gynecology; ATTEND Obstetrics & Gynecology | DX: O36.8120 Decreased fetal movements, second trimester, not applicable or unspecified (principal); Z3A.27 27 weeks gestation of pregnancy; Z79.899 Other long term (current) drug therapy | CPT/HCPCS: 76815; G0378 ==

== ENCOUNTER 2024-08-25 15:36 | Observation (INO) | payer MEDICAID ==
[~2024-08-25 15:36] MED LIST changes: -ACET1CAP14 PO; -BUPR150T18 PO; -CLON0.5T3 PO; -LORA-1121 PO; -POLYPOW
--- NOTE | 2024-08-25 16:05 | DVHDS2 ---
Physician Discharge Progress N Final Diagnosis: cramping Operations or Procedures: Operations or Procedures nst,sono Condition on Discharge: Good Disposition: Home Discharge Instructions: Diet: Regular Activity: No Restrictions, As Tolerated Medications: na Follow Up Care: Specialist: fu in 1 day with ob Discharge Statement: "Patient was advised to return to the ER or call 911 if any headaches, dizziness, shortness of breath, chest pain, abdominal pain, bleeding, fevers, or worsening of medical condition. Patient was counseled about treatment plan, medications, possible side effects, patientverbalized understanding. All questions were answered to the best of my ability. This discharge took greater then 30 minutes in planning, reviewing documentati on, counseling the patient, and discussing with other team members." TOSHIA NIETO DO Aug 25, 2024 16:05
== END 2024-08-25 16:35 | disposition home or self-care (01) ==
LOC: LDRP 15:36 → UNDOADMOB 15:36 → LDRP 15:49
PROVIDERS: ADMIT Obstetrics & Gynecology; ATTEND Obstetrics & Gynecology
DX: O26.893 Other specified pregnancy related conditions, third trimester (principal); R10.9 Unspecified abdominal pain; O47.03 False labor before 37 completed weeks of gestation, third trimester; Z3A.35 35 weeks gestation of pregnancy; Z79.899 Other long term (current) drug therapy
CPT/HCPCS: 59025; 81002; G0378

== ENCOUNTER 2025-06-30 11:39 | Emergency (ER) | payer MEDICAID ==
[~2025-06-30] VITALS: Ht 157.5 cm; Wt 77.1 kg
--- NOTE | 2025-06-30 12:38 | ED.PDOC ---
Musculoskeletal HPI Comments 39-year-old female presents to the ER with a chief complaint of UE. Patient reports that she hit her right hand against the wall by accident 2 hours ago leaving pain and swelling to the base of the proximal phalanges. Denies chills, fever, N/V/D, SOB, CP. No other associated symptoms, modifiers, recent injuries or sick contacts present at this time. Chief Complaint: Upper Extremity Time Seen by MD: 12:35 Primary Care Provider: Raina Reviewed Notes: Nurses Notes, Medications, Allergies Allergies: Coded Allergies: NO KNOWN ALLERGIES (Unverified , 10/31/17) Home Meds Active Scripts Hydrocodone-Acetaminophen (Hydrocodone Bitartrate/AC 5-325 mg) 1 Tab Tab, 1 TAB PO Q6HPRN PRN, #10 TAB as needed for pain Prov:TRAVIS GARCIA MANUFACTURING TECHNOLOGY ANALYST 12/04/23 Pantoprazole Sodium Sesquihydr (Protonix) 40 Mg Tab, 40 MG PO DAILY, #30 TAB Prov:KAYDEN BRISENO MD 09/20/23 Ondansetron (Zofran) 4 Mg Tab, 4 MG PO Q4HPRN PRN, #30 TAB Prov:TOSHIA NIETO DO 07/24/22 Information Source: Patient Mode of Arrival: Ambulatory Location: Right Extremity Location: [place] Timing: Minutes Prehospital treatment: None Severity: Moderate Able to Move Extremity: Yes Bear Weight: Limited Pain: Moderate Mechanism: Blunt Trauma Circumstances: Accident Onset of Symptoms: After Trauma Symptoms: Swelling, Pain DVT Risk Factors: NONE Associated signs and symptoms: Hand pain Past Medical History PAST MEDICAL HISTORY: Denies Surgical History: Denies all surgeries CERTIFIED PHARMACY TECH History: No Pertinent CERTIFIED PHARMACY TECH History Family History Family History: Reviewed,noncontributory to illness, Unknown Social History Smoker: Non-Smoker Alcohol: Occasionally Drugs: Denies Drug Use Lives In: Home Constitutional: denies: chills, diaphoresis, fatigue, fever, malaise, sweats, weakness, others EENTM: denies: blurred vision, double vision, ear bleeding, ear discharge, ear drainage, ear pain, ear ringing, eye pain, eye redness, hearing loss, mouth pain, mouth swelling, nasal discharge, nose bleeding, nose congestion, nose pain, photophobia, tearing, throat pain, throat swelling, voice changes, others Respiratory: denies: cough, hemoptysis, orthopnea, SOB at rest, shortness of breath, SOB with excertion, stridor, wheezing, others Cardiovascular: denies: chest pain, dizzy spells, diaphoresis, Dyspnea on exertion, edema, irregular heart beat, left arm pain, lightheadedness, pa lpitations, PND, syncope, others Gastrointestinal: denies: abdomen distended, abdominal pain, blood streaked bowels, constipated, diarrhea, dysphagia, difficulty swallowing, hematemesis, melena, nausea, poor appetite, poor fluid intake, rectal bleeding, rectal pain, vomiting, others Genitourinary: denies: abnormal vagina bleeding, burning, dyspareunia, dysuria, flank pain, frequency, hematuria, incontinence, pain, , vagina discharge, urgency, others Neurological: denies: dizziness, fainting, headache, left sided numbness, left sided weakness, numbness, paresthesia, pre-existing deficit, right sided numbness, right sided weakness, seizure, speech problems, tingling, tremors, weakness, others Musculoskeletal: reports: others (Right hand pain.); denies: back pain, gout, j oint pain, joint swelling, muscle pain, muscle stiffness, neck pain Integumetry: denies: bruises, change in color, change in hair/nails, dryness, laceration, lesions, lumps, rash, wounds, others Allergic/Immunocompromised: denies: Difficulty Healing, Frequent Infections, Hives, Itching, others Hematologic/Lymphatic: denies: anemia, blood clots, easy bleeding, easy bruising, swollen glands, others Endocrine: denies: excessive hunger, excessive sweating, excessive thirst, excessive urination, flushing, intolerance to cold, intolerance to heat, unex plained weight gain, unexplained weight loss, others Psychiatric: denies: anxiety, bipolar disorder, depression, hopeless, panic disorder, schizophrenia, sleepless, suicidal, others All Other Systems: Reviewed and Negative Physical Exam General Appearance: No Apparent Distress, Normal HEENT: Normal ENT Inspection, Pharynx Normal, TMs Normal Neck: Full Range of Motion, Non-Tender, Normal, Normal Inspection Respiratory: Chest Non-Tender, Lungs Clear, No Accessory Muscle Use, No Respiratory Distress, Normal Breath Sounds Cardiovascular: No Edema, No JVD, No Murmur, No Gallop, Normal Peripheral Puls es, Regular Rate/Rhythm Breast Exam: Deferred Gastrointestinal: No Organomegaly, Non Tender, No Pulsatile Mass, Normal Bowel Sounds, Soft Genitalia: Deferred Pelvic: Deferred Rectal: Deferred Extremities: No calf tenderness, Normal capillary refill, Normal inspection, Normal range of motion, Non-tender, No pedal edema Musculoskeletal : Location: Right Extremity Location: Hand Apperance: Normal, Swelling, Deformity, Limited ROM, Tenderness: Moderate Neurologic: Alert, hospitality coordinator II-XII nml as Tested, No Motor Deficits, Normal Affect, Normal Mood, No Sensory Deficits Cerebellar Function: Normal Reflexes: Normal Skin: Dry, Normal Color, Warm Peripheral Pulses: 1+ carotid (R), 1+ carotid (L) Lymphatic: No Adenopathy Was a procedure done? Was a procedure done?: No Differential Diagnosis EXT Differential Diagnosis: Fracture X-Ray, Labs, Meds, VS Vital Signs Date Time Temp Pulse Resp B/P (MAP) Pulse Ox O2 Delivery O2 Flow Rate FiO2 06/30/25 12:50 98.2 64 15 115/62 (79) 99 98.2 06/30/25 11:40 98.0 87 18 140/75 97 98.0 X-Ray, Labs, Meds, VS Comment [employer] patient punched a wall X-ray shows a boxer fracture Patient will have a splint and discharged home Time of 1ST Reevaluation: 13:05 Reevaluation 1ST: Unchanged Patient Education/Counseling: Diagnosis, Treatment, Prognosis Family Education/Counseling: No Family Present Departure 1 Departure Time of Disposition: 13:33 Impression: Primary Impression: Boxers fracture Additional Impression: Boxer's metacarpal fracture, neck, closed Disposition: 01 HOME / SELF CARE / HOMELESS Condition: Fair e-Prescriptions Naproxen (Naproxen) 375 Mg Tab 375 MG PO TID for 10 Days, #30 TAB Prov: KALEY THORPE MD 06/30/25 Discharged With: Self Critical Care Note Critical Care Time?: No Stability Stability form required: No I personally scribed for KALEY THORPE MD ([email or web address]) on 06/30/25 at 12:38. Electronically submitted by Star Acosta ([email or web address]). KALEY THORPE MD Jun 30, 2025 12:38
[2025-06-30] MEDS: KETOROLAC TROMETH 60MG/2ML VIAL IM ONE (12:45)
[2025-06-30 12:50] VITALS: BP 115/62; PULSE 64; RESP 15; TEMP 98.2; O2SAT 99
--- NOTE | 2025-06-30 13:27 | DVH ---
CLINICAL INDICATION: Fracture TECHNIQUE: 3-view right radiographic views of the were obtained. Comparison: XY L HAND 3V XRAY on DOS: 08/02/23 FINDINGS/IMPRESSION: Comminuted fracture of the right 5th distal metacarpal head, intra-articular nature with mild displac ement
[2025-06-30] MEDS: HYDROcodone-ACET 5/325MG TAB PO ONE (13:34)
[2025-06-30] MEDS ORDERED: NAPR-957 PO (13:35)
[2025-06-30] MEDS ORDERED: HYDR-4902 PO (14:20)
== END 2025-06-30 14:25 | disposition home or self-care (01) ==
LOC: ER 11:39
DX: S62.336A Displaced fracture of neck of fifth metacarpal bone, right hand, initial encounter for closed fracture (principal); Z79.899 Other long term (current) drug therapy; W22.01XA Walked into wall, initial encounter; Y93.89 Activity, other specified; Y92.89 Other specified places as the place of occurrence of the external cause; Y99.8 Other external cause status
CPT/HCPCS: 29125; 73130